=== PATIENT | male | born 1990 | race Caucasian/White ===

== ENCOUNTER 2018-03-26 17:15 | Emergency (ER) | payer OTHER ==
[2018-03-26 17:48] VITALS: TEMP 98.9
[2018-03-26] MEDS ORDERED: Tdap Vaccine 0.5 ml Vial (10-64 yrs) IM ONE ×2 (17:54→18:07)
[2018-03-26] MEDS ORDERED: Lidocaine Hydrochloride 5 ML INJ ONE (18:00)
[2018-03-26] MEDS ORDERED: Lidocaine 1% Inj (20ml) INFIL ONE (18:07)
[2018-03-26] MEDS ORDERED: Bacitracin 500 Units/gm Oint Foilpak UD TOP ONE (18:33)
[2018-03-26] MEDS ORDERED: Bacitracin 500 Units/gm Oint Foilpak UD ONE (18:46)
--- NOTE | 2018-03-26 18:49 | C.PDOC ---
History Of Present Illness 27 y/o male presents to the ED for evaluation of a laceration to his left distal third finger, sustained just prior to arrival. Patient states he accidentally cut the finger while working with a slicer. Last tetanus is unknown. No other injury reported. Denies change in sensation. Time Seen by Provider: 03/26/18 17:51 Chief Complaint (Nursing): Abnormal Skin Integrity History Per: Patient History/Exam Limitations: no limitations Onset/Duration Of Symptoms: Mins Current Symptoms Are (Timing): Still Present Past Medical History Reviewed: Historical Data, Nursing Documentation, Vital Signs Vital Signs: Last Vital Signs Temp 98.9 F 03/26/18 17:46 Pulse 86 03/26/18 17:46 Resp 20 03/26/18 17:46 BP 144/101 H 03/26/18 17:46 Pulse Ox 99 03/26/18 17:46 - Medical History PMH: No Chronic Diseases Surgical History: No Surg Hx Family History: States: No Known Family Hx - Social History Hx Alcohol Use: Yes Hx Substance Use: No - Immunization History Hx Tetanus Toxoid Vaccination: No Hx Influenza Vaccination: No Hx Pneumococcal Vaccination: No Review Of Systems Except As Marked, All Systems Reviewed And Found Negative. Musculoskeletal: Positive for: Hand Pain Skin: Positive for: Lesions (finger laceration) Neurological: Negative for: Weakness, Numbness, Incoordination Physical Exam - Physical Exam Appears: Non-toxic, No Acute Distress Skin: Warm, Dry, Other (2 cm laceration to the left 3rd distal phalanx, without nail bed involvement, FDP, FDS, Extensor tendon intact) Pulses: Left Radial: Normal, Right Radial: Normal Neurological/Psych: Oriented x3, Normal Motor, Normal Sensation, Normal Reflexes Gait: Steady ED Course And Treatment O2 Sat by Pulse Oximetry: 99 (RA) Pulse Ox Interpretation: Normal Laceration - Laceration Repair left finger Wound Length (In cm): 2 Description Of Wound: Linear Wound Cleansed With: Sterile Saline Anesthesia: Lidocaine 1% Wound Examination: Irrigated With Saline, No FB With Wound Exploration, No Tendon Injury With Wound Exploration Wound Closure: Suture (x6) Suture Technique And Material Used: Interrupted, Nylon (5:0) Wound Complexity: Simple Medical Decision Making Medical Decision Making: Impression: Finger laceration Initial Plan: --Tetanus booster --Wound repair Laceration repaired using 2ml Lido 1%. See procedure note, tolerated well by patient. Bacitracin applied with sterile dressing. Patient is stable for discharge home. Instructed wound check in 2 days, suture removal in 10 days. Disposition Counseled Patient/Family Regarding: Diagnosis, Need For Followup - Disposition Referrals: [facility] [Outside] Disposition: HOME/ ROUTINE Disposition Time: 18:45 Condition: STABLE Additional Instructions: keep dry for 24 hours warm water and soap to clean thereafter apply bacitracin twice daily wound check in 2 days suture removal in 10 days return to ER if symptoms worsens or progress Instructions: Laceration Repair With Stitches (DC) Forms: General Discharge Instructions, [facility] (Indonesian) - Clinical Impression Clinical Impression: Laceration - Scribe Statement The provider has reviewed the documentation as recorded by the Agapitoibnatanael Nixon Provider Attestation: All medical record entries made by the Agapitoibe were at my direction and personally dictated by me. I have reviewed the chart and agree that the record accurately reflects my personal performance of the history, physical exam, medical decision making, and the department course for this patient. I have also personally directed, reviewed, and agree with the discharge instructions and disposition.
[2018-03-26 19:04] VITALS: BP 140/89; PULSE 82; RESP 18; O2SAT 98
== END 2018-03-26 19:04 | disposition home or self-care (01) ==
LOC: C.ER 17:15
DX: S61.213A Laceration without foreign body of left middle finger without damage to nail, initial encounter (principal); W29.0XXA Contact with powered kitchen appliance, initial encounter; Y92.9 Unspecified place or not applicable; Z23 Encounter for immunization

== ENCOUNTER 2018-03-29 15:23 | Emergency (ER) | payer OTHER ==
[2018-03-29 15:39] VITALS: BP 145/85; PULSE 102; TEMP 99; O2SAT 98; BMI 34.7
--- NOTE | 2018-03-29 15:57 | C.PDOC ---
History Of Present Illness 27 y/o male pt presents to the ER for a wound check of his left middle finger s/p lac repair 2 days ago. Pt denies fever, chills, weakness, change of sensation, swelling of finger, or pain. Time Seen by Provider: 03/29/18 15:47 Chief Complaint (Nursing): Wound Check History Per: Patient History/Exam Limitations: no limitations Onset/Duration Of Symptoms: Days Ago Current Symptoms Are (Timing): Better Location Of Injury: Left: Hand (middle finger) Past Medical History Reviewed: Historical Data, Nursing Documentation, Vital Signs Vital Signs: Last Vital Signs Temp 99.0 F 03/29/18 15:29 Pulse 102 H 03/29/18 15:29 Resp 16 03/29/18 15:29 BP 145/85 03/29/18 15:29 Pulse Ox 98 03/29/18 15:29 Family History: States: No Known Family Hx - Social History Hx Alcohol Use: Yes Hx Substance Use: No - Immunization History Hx Tetanus Toxoid Vaccination: No Hx Influenza Vaccination: No Hx Pneumococcal Vaccination: No Review Of Systems Constitutional: Positive for: Other (wound check ). Negative for: Fever, Chills Musculoskeletal: Negative for: Other (swelling or pain on wounded finger) Neurological: Negative for: Weakness, Other (change of sensation) Physical Exam - Physical Exam Appears: Non-toxic, No Acute Distress Skin: Warm, Dry Extremity: Normal ROM, No Tenderness, No Deformity, No Swelling, Other (well healing wound on left middle finger, sutures intact, no sign of infection) Pulses: Left Radial: Normal Neurological/Psych: Oriented x3, Normal Speech, Normal Cognition, Normal Motor, Normal Sensation ED Course And Treatment O2 Sat by Pulse Oximetry: 98 (RA) Medical Decision Making Medical Decision Making: Impression: wound check Reassess: Pt is resting comfortably. The wound is well healing. No erythema, or sign of infection. Disposition Counseled Patient/Family Regarding: Diagnosis, Need For Followup - Disposition Disposition: HOME/ ROUTINE Disposition Time: 15:55 Condition: GOOD Additional Instructions: Please wash finger daily at sight of stitches with soap and water and pat dry gently. Suture removal in 7 days. Tylenol or Motrin for pain. Return to ER for sign of infection like redness or pus from wound. Instructions: Laceration Repair With Stitches (DC) Forms: [facility] (Amharic), General Discharge Instructions - Clinical Impression Clinical Impression: Encounter for re-check of laceration wound - PA / INVENTORY AUDITOR / Resident Statement MD/DO has reviewed & agrees with the documentation as recorded. - Scribe Statement The provider has reviewed the documentation as recorded by the Amando Spence Do All medical record entries made by the Scribe were at my direction and personally dictated by me. I have reviewed the chart and agree that the record accurately reflects my personal performance of the history, physical exam, medical decision making, and the department course for this patient. I have also personally directed, reviewed, and agree with the discharge instructions and disposition.
[2018-03-29 16:04] VITALS: RESP 18
== END 2018-03-29 16:04 | disposition home or self-care (01) ==
LOC: C.ER 15:23
DX: Z48.00 Encounter for change or removal of nonsurgical wound dressing (principal)

== ENCOUNTER 2018-04-05 17:21 | Emergency (ER) | payer OTHER ==
[2018-04-05 17:21] VITALS: BMI 34.7
[2018-04-05 17:28] VITALS: RESP 18
[2018-04-05] MEDS ORDERED: Bacitracin 500 Units/gm Oint Foilpak UD TOP ONE (17:42)
--- NOTE | 2018-04-05 17:45 | C.PDOC ---
History Of Present Illness 27 year old male presents to the emergency department for suture removal from his left index finger. Patient had a laceration repair done on 03-26-18. He has no complaints at this time. Time Seen by Provider: 04/05/18 17:33 Chief Complaint (Nursing): Suture/Staple Removal History Per: Patient History/Exam Limitations: no limitations Onset/Duration Of Symptoms: Laceration Location Of Injury: Left: Hand (index finger) Past Medical History Reviewed: Historical Data, Nursing Documentation, Vital Signs Vital Signs: Last Vital Signs Temp 98.1 F 04/05/18 17:26 Pulse 100 H 04/05/18 17:26 Resp 18 04/05/18 17:26 BP 160/101 H 04/05/18 17:26 Pulse Ox 100 04/05/18 17:26 - Medical History PMH: No Chronic Diseases Surgical History: No Surg Hx Family History: States: No Known Family Hx - Social History Hx Alcohol Use: Yes Hx Substance Use: No - Immunization History Hx Tetanus Toxoid Vaccination: No Hx Influenza Vaccination: No Hx Pneumococcal Vaccination: No Review Of Systems Constitutional: Negative for: Fever, Chills Neurological: Negative for: Weakness, Numbness Physical Exam - Physical Exam Appears: Well, Non-toxic, No Acute Distress Skin: Normal Color, Warm, Dry Head: Atraumatic, Normacephalic Eye(s): bilateral: Normal Inspection Neck: Normal ROM Chest: Symmetrical Extremity: Normal ROM, No Tenderness, No Swelling, Other (6 sutures intact laterally at the left index finger, no signs of infection) Neurological/Psych: Oriented x3, Normal Speech ED Course And Treatment O2 Sat by Pulse Oximetry: 100 (RA) Pulse Ox Interpretation: Normal Medical Decision Making Medical Decision Making: Plan: Bacitracin 1ea TOP 6 sutures removed from left index finger without difficulties. Disposition Counseled Patient/Family Regarding: Need For Followup - Disposition Disposition: HOME/ ROUTINE Disposition Time: 18:05 Condition: GOOD Instructions: Stitches Removal Forms: [facility] (Thai) - POA Present On Arrival: None - Clinical Impression Clinical Impression: Removal of suture - PA / AUTOMATIC MACHINES SUPERVISOR / Resident Statement MD/DO has reviewed & agrees with the documentation as recorded. - Scribe Statement The provider has reviewed the documentation as recorded by the Scribe (Lawrence Momin) All medical record entries made by the Scribe were at my direction and personally dictated by me. I have reviewed the chart and agree that the record accurately reflects my personal performance of the history, physical exam, medical decision making, and the department course for this patient. I have also personally directed, reviewed, and agree with the discharge instructions and disposition.
[2018-04-05 18:01] VITALS: BP 141/98; PULSE 97; TEMP 97.9
[2018-04-05] MEDS ORDERED: Bacitracin 500 Units/gm Oint Foilpak UD ONE (18:01)
[2018-04-05 18:05] VITALS: O2SAT 100
== END 2018-04-05 18:08 | disposition home or self-care (01) ==
LOC: C.ER 17:21
DX: S61.211D Laceration without foreign body of left index finger without damage to nail, subsequent encounter (principal)